=== PATIENT | male | born 1965 | race Caucasian/White ===

== ENCOUNTER → 2020-09-12 | Outpatient (CLI) | payer OTHER ==
[~2020-09-12] MED LIST: AMITRIPTYLINE H75 MG PO; GABAPENTIN800 MG PO; GLUCOPHAGE 500500 MG PO; HUMALOG100 UNIT/3 SC; HUMALOG100 UNIT/3 SQ; HYDROCODON-ACE1 EAC2 PO; HYDROCODON-ACE1 EAC6 PO; LANTUS SOL100 UNIT/1 SQ; LASIX40 MG PO; LEVAQUIN500 MG PO; LEVOTHYROXINE25 MCG PO; LUNESTA3 MG PO; MELOXICAM15 MG PO; METHOCARBAMOL500 MG PO; MOBIC15 MG PO; NEURONTIN600 MG PO; NORCO 10-325 T1 EACH PO; NORCO 7.5-3251 EACH PO; NOVOLOG FL100 UNIT/1 INJ; OMEPRAZOLE40 MG PO; PERCOCET 7.5-31 EACH PO; PREDNISOLONE AC10 ML EYEBOTH; TIZANIDINE HCL4 MG PO; TOUJEO MAX300 UNIT/1 SC; TRESIBA FL100 UNIT/1 SQ; VANCOMYCIN1.5 GM/15 IV; VITAMIN C 500500 MG PO
== END ==
LOC: EXRD 11:00
DX: R60.0 Localized edema (principal)
CPT/HCPCS: 93971

== ENCOUNTER 2020-11-14 13:32 | Emergency (ER) | payer OTHER ==
[~2020-11-14 13:32] MED LIST changes: -AMITRIPTYLINE H75 MG PO; -GABAPENTIN800 MG PO; -HUMALOG100 UNIT/3 SC; -HUMALOG100 UNIT/3 SQ; -HYDROCODON-ACE1 EAC2 PO; -HYDROCODON-ACE1 EAC6 PO; -LANTUS SOL100 UNIT/1 SQ; -LEVOTHYROXINE25 MCG PO; -MELOXICAM15 MG PO; -METHOCARBAMOL500 MG PO; -OMEPRAZOLE40 MG PO; -PREDNISOLONE AC10 ML EYEBOTH; -TIZANIDINE HCL4 MG PO; -VITAMIN C 500500 MG PO
[2020-11-14 14:37] LABS: HEMOGLOBIN 14.1 gm/dl (14.0-17.5); RED BLOOD COUNT 4.84 M/UL (4.20-5.50); WHITE BLOOD COUNT 8.2 K/UL (4.5-11.0)
[2020-11-14 15:06] LABS: BUN/CREATININE RATIO 18 (0-10)
[2021-02-20] MEDS ORDERED: HYDROCODON-ACE1 EAC6 PO (10:18)
[2021-02-20] MEDS ORDERED: HUMALOG100 UNIT/3 SQ (13:30)
[2021-02-20] MEDS ORDERED: METHOCARBAMOL500 MG PO (13:33)
[2021-02-20] MEDS ORDERED: LANTUS SOL100 UNIT/1 SQ (13:33)
== END 2020-11-14 18:30 | disposition home or self-care (01) ==
LOC: ER1 13:32
PROVIDERS: Student in an Organized Health Care Education/Training Program
DX: N28.89 Other specified disorders of kidney and ureter (principal); R91.1 Solitary pulmonary nodule; E11.9 Type 2 diabetes mellitus without complications; Z79.4 Long term (current) use of insulin; Z79.899 Other long term (current) drug therapy
CPT/HCPCS: 72131; 80053; 81001; 82550; 82553; 83605; 83690; 83735; 83874; 84100; 84484; 85025; 93005; 96374; 96375; 99284; J2270; J2405; Q9967

== ENCOUNTER 2020-12-21 11:06 | Inpatient (IN) | payer OTHER ==
[~2020-12-21] VITALS: Ht 172.7 cm; Wt 116.6 kg
[2020-12-21 12:06] LABS: RED BLOOD COUNT 4.53 M/UL (4.20-5.50); WHITE BLOOD COUNT 9.3 K/UL (4.5-11.0)
[2020-12-21 13:12] LABS: BUN/CREATININE RATIO 11 (0-10)
[2020-12-21] MEDS ORDERED: AMITRIPTYLINE H75 MG PO (16:14)
[2020-12-21] MEDS ORDERED: LEVOTHYROXINE25 MCG PO (16:15)
[2020-12-21] MEDS ORDERED: MELOXICAM15 MG PO (16:16)
[2020-12-21] MEDS ORDERED: OMEPRAZOLE40 MG PO (16:17)
[2020-12-21] MEDS ORDERED: PREDNISOLONE AC10 ML EYEBOTH (16:19)
[2020-12-21] MEDS ORDERED: HYDROCODON-ACE1 EAC6 PO (16:20)
[2020-12-21] MEDS ORDERED: TIZANIDINE HCL4 MG PO (16:21)
[2020-12-21] MEDS ORDERED: HUMALOG100 UNIT/3 SC (16:23)
[2020-12-21] MEDS ORDERED: GABAPENTIN800 MG PO (16:25)
[2020-12-21] MEDS ORDERED: VITAMIN C 500500 MG PO (16:26)
[2020-12-22 06:26] LABS: HEMOGLOBIN 11.9 gm/dl (14.0-17.5); RED BLOOD COUNT 4.17 M/UL (4.20-5.50); WHITE BLOOD COUNT 8.3 K/UL (4.5-11.0)
[2020-12-22 07:02] LABS: BUN/CREATININE RATIO 12 (0-10)
[2020-12-23 02:57] LABS: HEMOGLOBIN 12.3 gm/dl (14.0-17.5); RED BLOOD COUNT 4.33 M/UL (4.20-5.50); WHITE BLOOD COUNT 8.7 K/UL (4.5-11.0)
[2020-12-23 03:42] LABS: BUN/CREATININE RATIO 17 (0-10)
[2020-12-24 03:03] LABS: HEMOGLOBIN 11.3 gm/dl (14.0-17.5); RED BLOOD COUNT 3.99 M/UL (4.20-5.50); WHITE BLOOD COUNT 7.8 K/UL (4.5-11.0)
[2020-12-24 03:24] LABS: BUN/CREATININE RATIO 14 (0-10)
[2020-12-24] MEDS ORDERED: HUMALOG100 UNIT/3 SC (09:50)
[2020-12-24] MEDS ORDERED: LANTUS SOL100 UNIT/1 SQ (09:50)
[2020-12-24] MEDS ORDERED: HYDROCODON-ACE1 EAC2 PO (14:17)
[2021-02-20] MEDS ORDERED: HYDROCODON-ACE1 EAC6 PO (10:18)
[2021-02-20] MEDS ORDERED: HUMALOG100 UNIT/3 SQ (13:30)
[2021-02-20] MEDS ORDERED: METHOCARBAMOL500 MG PO (13:33)
[2021-02-20] MEDS ORDERED: LANTUS SOL100 UNIT/1 SQ (13:33)
== END 2020-12-24 16:20 | disposition home or self-care (01) | DRG 339 ==
LOC: ER1 11:06 → CDU 15:37 → M/S 15:37
PROVIDERS: Physician Assistant Medical; ADMIT Surgery
PROC: 0DTJ4ZZ Resection of Appendix, Percutaneous Endoscopic Approach (ICD-10-PCS; principal; 2020-12-21 16:45)
DX: K35.33 Acute appendicitis with perforation, localized peritonitis, and gangrene, with abscess (principal); E87.1 Hypo-osmolality and hyponatremia; L97.429 Non-pressure chronic ulcer of left heel and midfoot with unspecified severity; L97.419 Non-pressure chronic ulcer of right heel and midfoot with unspecified severity; Z20.822 Contact with and (suspected) exposure to COVID-19; E11.40 Type 2 diabetes mellitus with diabetic neuropathy, unspecified; E66.01 Morbid (severe) obesity due to excess calories; E11.65 Type 2 diabetes mellitus with hyperglycemia; E11.621 Type 2 diabetes mellitus with foot ulcer; G89.29 Other chronic pain; E78.5 Hyperlipidemia, unspecified; I10 Essential (primary) hypertension; K42.9 Umbilical hernia without obstruction or gangrene; Z80.6 Family history of leukemia; Z83.3 Family history of diabetes mellitus; Z79.4 Long term (current) use of insulin; Z68.37 Body mass index [BMI] 37.0-37.9, adult
CPT/HCPCS: 36415; 80048; 80053; 81001; 82436; 82570; 82947; 82962; 83036; 83605; 83690; 84133; 84300; 85025; 85652; 86140; 96374; 96375; 99285; J1100; J1650; J1885; J2001; J2250; J2270; J2370; J2405; J2543; J2704; J2710; J3010; J7050; J7120; Q9967; U0002

== ENCOUNTER → 2020-12-27 | Outpatient (CLI) | payer OTHER ==
[~2020-12-27] MED LIST changes: +AMITRIPTYLINE H75 MG PO; +GABAPENTIN800 MG PO; +HUMALOG100 UNIT/3 SC; +HUMALOG100 UNIT/3 SQ; +HYDROCODON-ACE1 EAC2 PO; +HYDROCODON-ACE1 EAC6 PO; +LANTUS SOL100 UNIT/1 SQ; +LEVOTHYROXINE25 MCG PO; +MELOXICAM15 MG PO; +METHOCARBAMOL500 MG PO; +OMEPRAZOLE40 MG PO; +PREDNISOLONE AC10 ML EYEBOTH; +TIZANIDINE HCL4 MG PO; +VITAMIN C 500500 MG PO
== END ==
LOC: CT 14:44
DX: N28.89 Other specified disorders of kidney and ureter (principal)
CPT/HCPCS: 36415; 74170; Q9967

== ENCOUNTER → 2021-02-20 | Outpatient (CLI) | payer OTHER ==
[~2021-02-20] MED LIST changes: +HUMALOG100 UNIT/2 SC; +LANTUS100 UNIT/1 SQ; +SILDENAFIL20 MG PO
[2021-02-20 10:43] LABS: HEMOGLOBIN 12.1 gm/dl (14.0-17.5); RED BLOOD COUNT 4.68 M/UL (4.20-5.50)
[2021-02-20 10:52] LABS: BUN/CREATININE RATIO 20 (0-10)
== END ==
LOC: OPSV2 09:00
PROVIDERS: Anesthesiology
DX: Z01.818 Encounter for other preprocedural examination (principal); I50.9 Heart failure, unspecified; E11.9 Type 2 diabetes mellitus without complications; R93.2 Abnormal findings on diagnostic imaging of liver and biliary tract; R94.31 Abnormal electrocardiogram [ECG] [EKG]
CPT/HCPCS: 36415; 80048; 85025; 93005

== ENCOUNTER → 2021-02-28 | Day surgery (SDC) | payer OTHER | END | disposition home or self-care (01) | LOC: OR 06:27 | DX: K80.10 Calculus of gallbladder with chronic cholecystitis without obstruction (principal); K66.0 Peritoneal adhesions (postprocedural) (postinfection); E11.621 Type 2 diabetes mellitus with foot ulcer; E11.52 Type 2 diabetes mellitus with diabetic peripheral angiopathy with gangrene; L97.509 Non-pressure chronic ulcer of other part of unspecified foot with unspecified severity; I96 Gangrene, not elsewhere classified; I50.9 Heart failure, unspecified; E78.5 Hyperlipidemia, unspecified; G47.30 Sleep apnea, unspecified; K21.9 Gastro-esophageal reflux disease without esophagitis; F32.9 Major depressive disorder, single episode, unspecified; F41.0 Panic disorder [episodic paroxysmal anxiety]; E03.9 Hypothyroidism, unspecified; Z86.16 Personal history of COVID-19; Z87.891 Personal history of nicotine dependence; Z79.891 Long term (current) use of opiate analgesic; Z79.4 Long term (current) use of insulin; Z79.899 Other long term (current) drug therapy | CPT/HCPCS: 82962; J0690; J1100; J1170; J1885; J2001; J2250; J2370; J2405; J2704; J2710; J3010; J7030; J7120; Q9967 ==

== ENCOUNTER 2021-05-30 13:28 | Emergency (ER) | payer OTHER ==
[2021-05-30 15:07] LABS: HEMOGLOBIN 12.2 gm/dl (14.0-17.5); RED BLOOD COUNT 4.68 M/UL (4.20-5.50); WHITE BLOOD COUNT 7.9 K/UL (4.5-11.0)
[2021-05-30 15:37] LABS: BUN/CREATININE RATIO 14 (0-10)
== END 2021-05-31 08:48 | disposition other institution (70) ==
LOC: ER1 13:28
PROVIDERS: Physician Assistant
DX: M46.46 Discitis, unspecified, lumbar region (principal); E11.69 Type 2 diabetes mellitus with other specified complication; M46.26 Osteomyelitis of vertebra, lumbar region; E78.5 Hyperlipidemia, unspecified; Z20.822 Contact with and (suspected) exposure to COVID-19; I10 Essential (primary) hypertension; Z90.49 Acquired absence of other specified parts of digestive tract
CPT/HCPCS: 80053; 82550; 82553; 83605; 83874; 84484; 85025; 85652; 86140; 87040; 96365; 96375; 96376; 99284; J1170; J2543; J3370; J7050; U0002

== ENCOUNTER → 2021-07-09 | Outpatient (CLI) | payer OTHER | LOC: KOH-I 14:00 | DX: R91.1 Solitary pulmonary nodule (principal); R91.8 Other nonspecific abnormal finding of lung field | CPT/HCPCS: 71250 ==